=== PATIENT | male | born 1965 | race Caucasian/White ===

== ENCOUNTER 2018-07-17 17:25 | Emergency (ER) | payer OTHER ==
[2018-07-17 17:57] VITALS: BP 116/62
[2018-07-17] MEDS ORDERED: Lidocaine 2% PF * 5 ML VIAL INJ ONE (18:20)
[2018-07-17] MEDS ORDERED: Tetan/Diph/Pertus SYR(Tdap)* 0.5 ML SYR(BOOSTRIX) use SYR IM ONE (18:24)
--- NOTE | 2018-07-17 18:24 | UC ---
Laceration HPI - HPI Summary HPI Summary: The patient is a 53-year-old male that presents here after lacerating his right index finger on a table saw. He suspects the laceration is fairly superficial. He has no numbness of the finger and he states his range of motion is full. His last tetanus shot was over 10 years ago. The patient also would like to get examined for his congestion. She has had some nasal congestion and postnasal drip as well as a cough and wheezing. States he is using his rescue inhaler frequently. He denies any chest pain or shortness of breath. - History Of Current Complaint Chief Complaint: UCLaceration Stated Complaint: RIGHT INDEX FINGER LACERATION Time Seen by Provider: 07/17/18 18:06 Hx Obtained From: Patient Laceration Location: Finger Mechanism Of Injury: Sharp Trauma Onset/Duration: Sudden Onset Severity: Moderate Pain Intensity: 7 Pain Scale Used: 0-10 Numeric Aggravating Factors: Nothing Hands: 1 - lac, FROM, strenght and sensation intact Related History: Dominant Hand Right - Allergies/Home Medications Allergies/Adverse Reactions: Allergies Allergy/AdvReac Type Severity Reaction Status Date / Time cephalexin [From Keflex] Allergy Severe throat Verified 07/17/18 17:57 swelling/respiratory Home Medications: Home Medications Albuterol HFA INHALER* [Ventolin HFA Inhaler*] 2 puff INH Q4H PRN 07/17/18 [ History Confirmed 07/17/18] Aspirin [Adult Aspirin Regimen] 81 mg PO DAILY 07/17/18 [History Confirmed 07/17] Atorvastatin* [Lipitor*] 40 mg PO QPM 07/17/18 [History Confirmed 07/17/18] Bisoprolol TAB* [Zebeta TAB*] 5 mg PO DAILY 07/17/18 [History Confirmed 07/17/18 ] Budesonide/Formote 160/4.5(NF) [Symbicort 160/4.5 (NF)] 2 puff INH BID 07/17/18 [History Confirmed 07/17/18] FLUoxetine CAP* [PROzac CAP*] 60 mg PO DAILY 07/17/18 [History Confirmed ] Omeprazole CAP* [Prilosec CAP* 20 MG] 20 mg PO DAILY 07/17/18 [History Confirmed 07/17/18] Spiriva Inhaler DEVICE* [Tiotropium Inhaler DEVICE*] 2 inh BEDTIME 07/17/18 [ History Confirmed 07/17/18] Triamcinolone 0.5% CREAM(NF) [Triamcinolone 0.5% CREAM*] 1 applic TOPICAL BID [History Confirmed 07/17/18] Valsartan TAB* [Diovan TAB*] 160 mg PO DAILY 07/17/18 [History Confirmed ] amLODIPine TAB* [Norvasc 5 mg TAB*] 5 mg PO DAILY 07/17/18 [History Confirmed ] hydroCHLOROthiazide [Hydrochlorothiazide] 12.5 mg PO DAILY 07/17/18 [History Confirmed 07/17/18] PMH/Surg Hx/FS Hx/Imm Hx Previously Healthy: Yes Endocrine History: Dyslipidemia Cardiovascular History: Cardiac Disease, Hypertension Respiratory History: Asthma, Bronchitis - Surgical History Surgical History: Yes Surgery Procedure, Year, and Place: C4 surgery. cardiac cath - Family History Known Family History: Positive: Hypertension, Diabetes - Social History Alcohol Use: Occasionally Substance Use Type: None Smoking Status (MU): Former Smoker When Did the Patient Quit Smoking/Using Tobacco: 10 years - Immunization History Most Recent Tetanus Shot: > 10 years Review of Systems Constitutional: Negative Skin: Negative Eyes: Negative ENT: Nasal Discharge Respiratory: Cough Cardiovascular: Negative Gastrointestinal: Negative Genitourinary: Negative Motor: Negative Neurovascular: Negative Musculoskeletal: Negative Neurological: Negative Psychological: Negative All Other Systems Reviewed And Are Negative: Yes Physical Exam Triage Information Reviewed: Yes Appearance: Well-Appearing, No Pain Distress, Well-Nourished Vital Signs: Initial Vital Signs Temp 99.2 F 07/17/18 17:52 Pulse 58 07/17/18 17:52 Resp 16 07/17/18 17:52 BP 116/62 07/17/18 17:52 Pulse Ox 95 07/17/18 17:52 Vital Signs Reviewed: Yes Eyes: Positive: Conjunctiva Clear ENT: Positive: Hearing grossly normal, Pharynx normal, TMs normal, Uvula midline. Negative: Nasal congestion, Nasal drainage, TM bulging, TM dull, TM red, Tonsillar swelling, Tonsillar exudate, Trismus, Muffled voice, Hoarse voice , Dental tenderness, Sinus tenderness Dental Exam: Normal Neck: Positive: Supple, Nontender, No Lymphadenopathy Respiratory: Positive: No respiratory distress, No accessory muscle use, Crackles - R, Wheezing Cardiovascular: Positive: RRR Abdomen Description: Positive: Nontender, No Organomegaly, Soft Musculoskeletal: Positive: ROM Intact, No Edema Neurological: Positive: Alert Psychological Exam: Normal Skin Exam: Normal Laceration Repair - Laceration Repair 1 Description: Linear Laceration Size After Repair: Length (cm) - 2.1, Width (mm) - 2, Depth (mm) - 2 Debridement: minimal Modified For Repair: No Type Injection: Digital Anesthesia Used: 2.0% Lido Cleansing Completed Via Routine Prep: Yes Irrigation With Pressure Irrigation Device: Yes Closure Material: Sutures Closure Method: Single Layer Suture Of: Skin Suture Type: Nylon - 6 5-0 nylon interupted sutures Laceration Course/Dx - Differential Dx - Laceration/Wound Provider Diagnoses: Laceration right index finger. viral URI. acute bronchospasm Discharge - Sign-Out/Discharge Documenting (check all that apply): Patient Departure All imaging exams completed and their final reports reviewed: No Studies - Discharge Plan Condition: Stable Disposition: HOME Prescriptions: predniSONE [Deltasone 20 MG TAB] 40 mg PO DAILY #10 tab Patient Education Materials: Laceration (DC), Bronchospasm (ED) Referrals: Shobha Mascorro MD [Primary Care Provider] - 2 Weeks (recheck in about 10 days) Additional Instructions: clean twice daily thin film of antibotic oint bandaid recheck for concerns of infection sutures out in about 10 days - Billing Disposition and Condition Condition: STABLE Disposition: Home
== END 2018-07-17 19:17 | disposition home or self-care (01) ==
LOC: UCCORT 17:25
DX: S61.210A Laceration without foreign body of right index finger without damage to nail, initial encounter (principal); J06.9 Acute upper respiratory infection, unspecified; E78.00 Pure hypercholesterolemia, unspecified; I10 Essential (primary) hypertension; J45.909 Unspecified asthma, uncomplicated; J98.01 Acute bronchospasm; Z88.1 Allergy status to other antibiotic agents; Z79.82 Long term (current) use of aspirin; Z79.899 Other long term (current) drug therapy; Z87.891 Personal history of nicotine dependence; W31.2XXA Contact with powered woodworking and forming machines, initial encounter; Y92.9 Unspecified place or not applicable
CPT/HCPCS: 12001; 90471; 90715; 99202; G0463